=== PATIENT | male | born 1940 | race African-American/Black ===

== ENCOUNTER 2018-05-22 01:49 | Emergency (ER) | payer MEDICARE, OTHER ==
[~2018-05-22] VITALS: Ht 182.9 cm; Wt 98.9 kg
[2018-05-22] MEDS ORDERED: FLUORESCEIN OPHTH TEST STRIP. OS ONE (02:30)
[2018-05-22] MEDS ORDERED: TETRACAINE 0.5% OPHTH SOLUTION 4ML BOTTLE. OS ONE (02:30)
[2018-05-22] MEDS ORDERED: ERYT1OIN6 OP (02:46)
[2018-05-22] MEDS ORDERED: ERYTHROMYCIN 0.5% OPHTH OINTMENT 1GM TUBE. OS ONE (03:00)
[2018-05-22 03:15] VITALS: BP 147/69
--- NOTE | 2018-05-22 03:52 | PHYS DOC ---
Past Medical History Past Medical History: Cancer, Diabetes-Type II, Hypertension, Stroke Additional Past Medical Histor: COLON CA Past Surgical History: Other Additional Past Surgical Histo: bypass , colon resection, hernia Alcohol Use: None Drug Use: None Adult General Chief Complaint Chief Complaint: FOREIGN BODY/EYES HPI HPI Patient is a 77 year old male presenting with foreign body sensation of the left eye he was doing some yardwork he thinks some dust or some grass medical into the eye is irritated foreign body sensation mild blurry vision Review of Systems Review of Systems Current Medications Current Medications Current Medications Medications (Trade) Dose Ordered Sig/Kevin Start Time Stop Time Status Last Admin Dose Admin Erythromycin (Romycin) 0.25 inch 1X ONCE 05/22/18 03:00 05/22/18 03:01 DC 05/22/18 03:10 0.25 INCH Fluorescein Sodium (Ful-Graciela) 1 strip 1X ONCE 05/22/18 02:30 05/22/18 02:31 DC 05/22/18 02:22 1 STRIP Tetracaine HCl (Tetracaine) 1 drop 1X ONCE 05/22/18 02:30 05/22/18 02:31 DC 05/22/18 02:22 1 DROP Allergies Allergies Allergies Coded Allergies Type Severity Reaction Last Updated Verified No Known Drug Allergies 05/14/16 No Physical Exam Physical Exam Constitutional: Well developed, well nourished, no acute distress, non-toxic appearance. [] HENT: Normocephalic, atraumatic, bilateral external ears normal, oropharynx moist, no oral exudates, nose normal. [] Eyes: Left conjunctiva is mildly injected eversion of the lid reveals no foreign body visual acuity is 20/30 with glasses in the affected eye. Cornea does not stain with fluorescein no obvious corneal abrasion was identified. Lungs & Thorax: Pulmonary: Normal respiratory effort no increased work of breathing no obvious chest wall trauma Skin: Warm, dry, no erythema, no rash. [] Extremities: No tenderness, no cyanosis, no clubbing, ROM intact, no edema. [] Neurologic: Alert and oriented X 3, normal motor function, normal sensory function, no focal deficits noted. [] Psychologic: Affect normal, judgement normal, mood normal. [] Current Patient Data Vital Signs Vital Signs Date Time Temp Pulse Resp B/P (MAP) Pulse Ox O2 Delivery O2 Flow Rate FiO2 05/22/18 03:15 84 18 147/69 (95) 98 Room Air 05/22/18 01:57 98.6 98.6 EKG EKG [] Radiology/Procedures Radiology/Procedures [] Course & Med Decision Making Course & Med Decision Making Pertinent Labs and Imaging studies reviewed. (See chart for details) Foreign body sensation mild conjunctival injection erythromycin ointment was given no foreign body was seen advised to follow-up with primary tobacco dipper in 2 days if not improved. Dragon Disclaimer Dragon Disclaimer This electronic medical record was generated, in whole or in part, using a voice recognition dictation system. Departure Departure Impression: Primary Impression: Conjunctivitis Disposition: HOME, SELF-CARE Condition: IMPROVED Patient Instructions: Eye - Conjunctival Foreign Body Scripts Erythromycin Base (Erythromycin) 1 Gm Oint...g. 1 GM OP BID, #1 MISC Prov: JAYCE TITUS MD 05/22/18 JAYCE TITUS MD May 22, 2018 03:52
== END 2018-05-22 03:15 | disposition home or self-care (01) ==
LOC: ER 01:49
DX: H10.9 Unspecified conjunctivitis (principal); E11.9 Type 2 diabetes mellitus without complications; I10 Essential (primary) hypertension; Z86.73 Personal history of transient ischemic attack (TIA), and cerebral infarction without residual deficits
CPT/HCPCS: 99283